=== PATIENT | male | born 1995 | race Caucasian/White ===

== ENCOUNTER → 2017-08-12 | Outpatient (CLI) | payer OTHER ==
[~2017-08-12] MED LIST: RISP0.5T3 PO; SERT100T PO
== END | disposition home or self-care (01) ==
LOC: C.LABMFLN 10:41
PROVIDERS: ATTEND Family Medicine
DX: R53.82 Chronic fatigue, unspecified (principal); Z13.220 Encounter for screening for lipoid disorders